=== PATIENT | female | born 1980 | race American Indian/Alaskan Native ===

== ENCOUNTER 2018-11-09 05:21 | Emergency (ER) | payer SELFPAY ==
[2018-11-09 05:37] VITALS: BP 110/78
[2018-11-09] MEDS ORDERED: IBUPROFEN PO ONE (05:45)
[2018-11-09] MEDS ORDERED: NORCO 7.5/325 PO ONE (05:45)
[2018-11-09] MEDS ORDERED: ZOFRAN ODT PO ONE (05:45)
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
--- NOTE | 2018-11-09 06:42 | Cat Scan Report ---
PROCEDURE: CT CERVICAL SPINE WO CON TECHNIQUE: CT imaging was obtained through the cervical spine without contrast. Transaxial, coronal and sagittal reformations are provided. HISTORY: neck pain after movement COMPARISONS: None FINDINGS: The cervical spine is intact. Vertebral body heights are preserved. No acute fracture or listhesis. A tlanto-dens interval and odontoid process are intact. Intervertebral disc spaces are preserved. No ce rvical spinal canal mass effect identified within the limits of CT. No perivertebral soft tissue swel ling or hematoma identified. Limited soft tissue exam of the visualized neck is unremarkable. IMPRESSION: Unremarkable CT of the cervical spine. Consider follow-up MRI as warranted. This document is electronically signed by Esau Alex MD., November 09 2018 06:39:44 AM ET
== END 2018-11-09 07:30 | disposition home or self-care (01) ==
LOC: ED 05:21
DX: G89.29 Other chronic pain (principal); M54.2 Cervicalgia; Z98.51 Tubal ligation status
CPT/HCPCS: 72125; 99283; Q0162

== ENCOUNTER 2019-04-23 08:21 | Emergency (ER) | payer SELFPAY ==
[2019-04-23] MEDS ORDERED: NACL 0.9% 1000 ML 1,000 ML IV ONE (10:00)
[2019-04-23] MEDS ORDERED: TYLENOL PO ONE (10:01)
--- NOTE | 2019-04-23 10:08 | Emergency Department Report ---
ED Dizziness HPI - General Chief Complaint: Dizziness Stated Complaint: PASSED OUT /DIZZY Time Seen by Provider: 04/23/19 09:42 Source: patient Mode of arrival: Ambulatory Limitations: No Limitations - History of Present Illness Initial Comments: Gela is a pleasant 38 year old female with history of lupus and migraine headache who presents with lightheadedness and syncope. Last night she had a syncopal episode. + brief loss of consciousness. No head trauma.. She has global throbbing headache. Today she has lightheadedness. she was unable to d rive. Lightheadedness worsens with position change. Lightheadedness worsens with walking. Last night she experienced palpitations. She denies chest pain. She denies abdominal pain. She has generalized malaise. Complaint: lightheadedness -: Gradual, days(s) (1) Timing: gradual onset Description: lightheadedness History of Same: Yes History of Trauma: No Severity: severe Improves With: remaining still Worsens With: movement, position, exertion Associated Symptoms: malaise, syncope - Related Data Previous Rx's Medication Instructions Recorded Last Taken Type Ibuprofen [Motrin 600 MG tab] 600 mg PO Q8H PRN #30 tablet 11/09/18 Unknown Rx Butalb/Acetaminophen/Caffeine 1 cap PO Q6HR PRN #10 cap 04/23/19 Unknown Rx [Fioricet 50-300-40 mg CAP] Allergies Allergy/AdvReac Type Severity Reaction Status Date / Time No Known Allergies Allergy Unverified 11/09/18 05:27 ED Review of Systems ROS: Stated complaint: PASSED OUT /DIZZY Other details as noted in HPI Comment: All other systems reviewed and negative Constitutional: malaise. denies: chills, fever Cardiovascular: palpitations. denies: chest pain Gastrointestinal: denies: abdominal pain, nausea, vomiting Neurological: headache. denies: numbness, confusion ED Past Medical Hx - Past Medical History Previous Medical History?: Yes Additional medical history: lupes - Surgical History Past Surgical History?: Yes Additional Surgical History: c/s, tousidectomy, right foot, tube ligation - Social History Smoking Status: Never Smoker Substance Use Type: None - Medications Home Medications: Home Medications Medication Instructions Recorded Confirmed Last Taken Type Ibuprofen [Motrin 600 MG tab] 600 mg PO Q8H PRN #30 tablet 11/09/18 Unknown Rx Butalb/Acetaminophen/Caffeine 1 cap PO Q6HR PRN #10 cap 04/23/19 Unknown Rx [Fioricet 50-300-40 mg CAP] ED Physical Exam - General Limitations: No Limitations General appearance: alert, in no apparent distress - Head Head exam: Present: atraumatic, normocephalic - Eye Eye exam: Present: normal appearance - ENT ENT exam: Present: mucous membranes moist - Neck Neck exam: Present: normal inspection, full ROM - Respiratory Respiratory exam: Present: normal lung sounds bilaterally. Absent: respiratory distress, wheezes, rales, rhonchi - Cardiovascular Cardiovascular Exam: Present: regular rate, normal rhythm, normal heart sounds. Absent: systolic murmur, diastolic murmur, rubs, gallop - GI/Abdominal GI/Abdominal exam: Present: soft, normal bowel sounds. Absent: distended, tenderness, guarding, rebound - Extremities Exam Extremities exam: Present: normal inspection - Back Exam Back exam: Present: normal inspection - Neurological Exam Neurological exam: Present: alert, oriented X3 - Psychiatric Psychiatric exam: Present: normal affect, normal mood - Skin Skin exam: Present: warm, dry, intact, normal color. Absent: rash ED Course Vital Signs 04/23/19 04/23/19 04/23/19 08:43 09:09 11:10 Temperature 98.4 F Pulse Rate 68 Respiratory 22 17 17 Rate Blood Pressure 116/80 O2 Sat by Pulse 100 Oximetry 04/23/19 11:28 Temperature Pulse Rate Respiratory 17 Rate Blood Pressure O2 Sat by Pulse Oximetry ED Medical Decision Making - Lab Data Result diagrams: 04/23/19 10:15 04/23/19 10:15 - EKG Data EKG shows normal: sinus rhythm, axis, intervals, QRS complexes, ST-T waves Rate: normal - EKG Data 04/23/19 10:47 NSR nl rate nl axis nl intervals no ST-T signs of ischemia no ST elevation rate 70 beats a minute - Medical Decision Making Mrs. Martin presents with syncope and subsequent lightheadedness. Typical migraine headache. Persistent lightheadedness differential diagnosis: Migraine headache, anemia, dehydration, fatigue, , viral syndrome. PERC negative for pulmonary embolism. Symptoms improved with IV fluid and IV antiemetics and analgesics. Prescribed Fioricet. Recommend rest hydration. Critical care attestation.: If time is entered above; I have spent that time in minutes in the direct care of this critically ill patient, excluding procedure time. ED Disposition Clinical Impression: Migraine headache, Lightheadedness, Fatigue Disposition: - TO HOME OR SELFCARE Is pt being admited?: No Does the pt Need Aspirin: No Condition: Stable Instructions: Lightheadedness (ED), Migraine Headache (ED) Prescriptions: Butalb/Acetaminophen/Caffeine [Fioricet 50-300-40 mg CAP] 1 cap PO Q6HR PRN #10 cap PRN Reason: Headache Referrals: IVANNA HERNÁNDEZ MD [Staff Physician] - 3-5 Days Forms: Work/School Release Form(ED)
[2019-04-23 11:00] LABS: Basophils # (Auto) 0.1 K/mm3 (0.0-0.1); Basophils % (Auto) 1.1 % (0.0-1.8); Eosinophils # (Auto) 0.1 K/mm3 (0.0-0.4); Eosinophils % (Auto) 0.7 % (0.0-4.3); Hematocrit 40.8 % (30.3-42.9); Hemoglobin 13.4 gm/dl (10.1-14.3); Lymphocytes # (Auto) 3.5 K/mm3 (1.2-5.4); Lymphocytes % (Auto) 41.6 % (13.4-35.0); Mean Corpuscular HGB Conc 33 % (30-34); Mean Corpuscular Volume 80 fl (79-97); Monocytes # (Auto) 0.4 K/mm3 (0.0-0.8); Monocytes % (Auto) 4.7 % (0.0-7.3); Platelet Count 233 K/mm3 (140-440); Red Blood Count 5.08 M/mm3 (3.65-5.03); Red Cell Distribution Width 14.7 % (13.2-15.2)
[2019-04-23] MEDS ORDERED: MORPHINE IV ONE (11:27)
[2019-04-23] MEDS ORDERED: ZOFRAN IV ONE (11:27)
[2019-04-23] MEDS ORDERED: TORADOL IV ONE (11:27)
[2019-04-23] MEDS ORDERED: DECADRON IV ONE (11:27)
[2019-04-23] MEDS ORDERED: TORADOL ONE (11:28)
[2019-04-23] MEDS ORDERED: ZOFRAN ONE (11:28)
[2019-04-23] MEDS ORDERED: DECADRON ONE (11:29)
[2019-04-23] MEDS ORDERED: MORPHINE ONE (11:29)
[2019-04-23 11:45] LABS: BUN/Creatinine Ratio TNR; Blood Urea Nitrogen TNR mg/dL (7-17)
[2019-04-23 11:46] LABS: Alanine Aminotransferase TNR units/L (7-56); Albumin TNR g/dL (3.9-5); Calcium TNR mg/dL (8.4-10.2); Hemolysis Index TNR
[2019-04-23 12:49] VITALS: BP 122/77
== END 2019-04-23 12:57 | disposition home or self-care (01) ==
LOC: ED 08:21
DX: G43.909 Migraine, unspecified, not intractable, without status migrainosus (principal); M32.9 Systemic lupus erythematosus, unspecified; Z90.89 Acquired absence of other organs; Z98.51 Tubal ligation status; Z79.899 Other long term (current) drug therapy
CPT/HCPCS: 36415; 80053; 84703; 85025; 93005; 93010; 96361; 96374; 96375; 99283; J1100; J1885; J2270; J2405; J7030

== ENCOUNTER 2019-05-13 21:44 | Emergency (ER) | payer OTHER ==
[2019-05-13] MEDS ORDERED: KEPPRA 1,000 MG/NS 0.75% 100ML 1,000 MG/100 ML BAG IV ONE (22:11)
--- NOTE | 2019-05-13 22:24 | Emergency Department Report ---
HPI - General Chief Complaint: Seizure Time Seen by Provider: 05/13/19 22:07 - HPI HPI: 38-year-old -[place]wegian female presents to the emergency department via EMS from home after having seizures. Apparently the patient had one or 2 seizures prior to EMS arrival but EMS also did witness a seizure. She was given 5 mg of Versed. Currently the patient is postictal and therefore a poor historian. The patient's significant other is at bedside and said that she had one previous episode of seizures a few months ago and went to [facility]. She is not on any medications. She otherwise has a past medical history of lupus and there is a previous visit/record that says she has a history of migraine headaches. ED Past Medical Hx - Past Medical History Previous Medical History?: Yes Additional medical history: lupes - Surgical History Past Surgical History?: Yes Additional Surgical History: c/s, tousidectomy, right foot, tube ligation - Social History Smoking Status: Never Smoker - Medications Home Medications: Home Medications Medication Instructions Recorded Confirmed Last Taken Type Ibuprofen [Motrin 600 MG tab] 600 mg PO Q8H PRN #30 tablet 11/09/18 Unknown Rx Butalb/Acetaminophen/Caffeine 1 cap PO Q6HR PRN #10 cap 04/23/19 Unknown Rx [Fioricet 50-300-40 mg CAP] levETIRAcetam [Keppra TAB] 500 mg PO BID #40 tablet 05/14/19 Unknown Rx ED Review of Systems ROS: Stated complaint: SEIZURE Other details as noted in HPI Comment: Unobtainable due to pts medical conditions Physical Exam - Physical Exam Vital Signs: Vital Signs 05/13/19 21:58 Temperature 98.1 F Pulse Rate 81 Respiratory 18 Rate Blood Pressure 105/67 O2 Sat by Pulse 95 Oximetry Physical Exam: GENERAL: Patient is postictal. HENT: Normocephalic. Atraumatic. Patient has moist mucous membranes. EYES: Pupils equal reactive to light bilaterally. NECK: Supple. Trachea is midline. CHEST/LUNGS: Clear to auscultation. There is no respiratory distress noted. HEART/CARDIOVASCULAR: Regular. There is no tachycardia. There is no murmur. ABDOMEN: Abdomen is soft, nontender. Patient has normal bowel sounds. There is no abdominal distention. SKIN: Skin is warm and dry. NEURO: Patient is very sleepy and postictal. She does arouse slightly to verbal and tactile stimuli but will go right back to sleep if not stimulated. Not currently answering questions or following commands. MUSCULOSKELETAL: There is no tenderness or deformity. There is no evidence of acute injury. ED Course Vital Signs 05/13/19 21:58 Temperature 98.1 F Pulse Rate 81 Respiratory 18 Rate Blood Pressure 105/67 O2 Sat by Pulse 95 Oximetry ED Medical Decision Making - Lab Data Result diagrams: 05/13/19 22:29 05/13/19 22:29 - EKG Data -: EKG Interpreted by Me EKG shows normal: sinus rhythm, axis, intervals, QRS complexes, ST-T waves Rate: normal - EKG Data When compared to previous EKG there are: previous EKG unavailable Interpretation: normal EKG - Radiology Data Radiology results: report reviewed CT of the head does not show any acute intracranial process including no ischemia, shift, mass, bleeding or skull fracture. - Medical Decision Making This patient presented with a few seizures prior to presentation, one of which was witnessed by EMS. At first the patient is postictal. She was reevaluated multiple times and has improved. She is still slightly drowsy from the seizures and the Versed but she is easily arousable and once awake she is oriented and alert. There are no focal, motor or sensory deficits and cranial nerves are intact. CT scan of the head without contrast did not show any bleed, shift, mass, ischemia, or any other acute process. Labs also have been mostly unremarkable and do not show any etiology of her symptoms. There's been no further seizure-like activity while in the emergency department. She was loaded with Keppra. Patient was able to ambulatory around the emergency department and says that she feels stable, just tired. She'll be discharged home to follow up with primary care and neurology. She will be started on Keppra until she is able to follow-up with the neurologist and have an EEG done. We discussed staying away from any alcohol or illicit drugs. She will return to the ER with any worsening of her symptoms or any acute distress. Critical Care Time: No Critical care attestation.: If time is entered above; I have spent that time in minutes in the direct care of this critically ill patient, excluding procedure time. ED Disposition Clinical Impression: Seizures Disposition: DC-01 TO HOME OR SELFCARE Is pt being admited?: No Condition: Stable Instructions: Recurrent Seizures Adult (ED) Additional Instructions: Please follow up with a primary care physician in the next few days. I am giving him a referral for 2 different local neurologists, Dr. Bolton and Dr. Kothari, to follow up regarding your seizures. I'm starting you on a seizure medication called Keppra. Try to avoid any alcohol or illicit drugs as they can lower your seizure threshold. Return to the emergency department immediately with any further seizure-like activity, worsening of your symptoms, or with any acute distress. Prescriptions: levETIRAcetam [Keppra TAB] 500 mg PO BID #40 tablet Referrals: [facility] [Outside] - 2-3 Days ISAAC KOTHARI MD [Staff Physician] - 2-3 Days UMBERTO BOLTON MD [Referring] - 2-3 Days
[2019-05-13 22:46] LABS: Hematocrit 36.9 % (30.3-42.9); Hemoglobin 12.1 gm/dl (10.1-14.3); Mean Corpuscular HGB Conc 33 % (30-34); Mean Corpuscular Volume 80 fl (79-97); Platelet Count 216 K/mm3 (140-440); Red Blood Count 4.59 M/mm3 (3.65-5.03); Red Cell Distribution Width 14.2 % (13.2-15.2)
[2019-05-13 23:11] LABS: Alanine Aminotransferase 7 units/L (7-56); Albumin 3.9 g/dL (3.9-5); BUN/Creatinine Ratio 19; Blood Urea Nitrogen 13 mg/dL (7-17); Calcium 8.9 mg/dL (8.4-10.2); Hemolysis Index 11
--- NOTE | 2019-05-13 23:30 | Cat Scan Report ---
CT HEAD WITHOUT CONTRAST INDICATION: Seizures TECHNIQUE: All CT scans at this location are performed using CT dose reduction for ALARA by means of automated exposure control. COMPARISON: None available. FINDINGS: BRAIN: No hemorrhage or mass effect are seen. No evidence of acute infarction is noted. ORBITS: Normal as visualized. SOFT TISSUES OF HEAD: Normal. CALVARIUM: Normal. VISUALIZED PARANASAL SINUSES AND MASTOID AIR CELLS: Clear. ADDITIONAL FINDINGS: None. IMPRESSION: No acute intracranial abnormality. Signer Name: Jacob Webber MD Signed: 05/13/2019 11:26 PM Workstation Name: [id number]
[2019-05-14 03:31] VITALS: BP 113/65
== END 2019-05-14 03:37 | disposition home or self-care (01) ==
LOC: ED 21:44
DX: R56.9 Unspecified convulsions (principal); Z98.51 Tubal ligation status; Z79.899 Other long term (current) drug therapy
CPT/HCPCS: 36415; 70450; 80053; 82962; 84703; 85027; 93005; 93010; 96365; 99285; J1953; 80320; G0480

== ENCOUNTER 2019-05-16 17:24 | Emergency (ER) | payer SELFPAY ==
[2019-05-16] MEDS ORDERED: KEPPRA 1,000 MG/NS 0.75% 100ML 1,000 MG/100 ML BAG IV ONE (18:12)
[2019-05-16] MEDS ORDERED: NACL 0.9% 1000 ML 1,000 ML IV ONE (18:12)
--- NOTE | 2019-05-16 18:12 | Emergency Department Report ---
ED Seizure HPI - General Chief Complaint: Seizure Stated Complaint: SEIZURE Time Seen by Provider: 05/16/19 18:02 Source: EMS Mode of arrival: Stretcher Limitations: No Limitations - History of Present Illness Initial Comments: She is a 38-year-old female that presents emergency room with complaints of seizure activity. Patient denies trauma. Patient states her teenage child witnessed it. Patient complains of headache. Patient states she simply has a headache after seizures. Patient states she has a history of seizure. Patient states she is compliant with her medications. Patient is taking Keppra. Patient states she was lying in bed when her seizure took place and her daughter found her in her bed. Patient brought in by EMS. Patient denies chest pain. Patient denies blurred vision. Patient denies neck pain. Patient denies shortness of breath. Patient denies fever and chills. MD Complaint: seizure -: Sudden Description of Episode: loss of consciousness, tonic-clonic movement -: second(s) Witnessed:: Yes Trauma: No Seizure History: known seizure disorder, compliant with medication Place: home Possible Precipitating Event: none Associated Symptoms: malaise. denies: chest pain, confusion, cough, diaphoresis, fever/chills, loss of appetite, rash, shortness of breath, syncope, weakness, tongue injury Treatments Prior to Arrival: none - Related Data Previous Rx's Medication Instructions Recorded Last Taken Type Ibuprofen [Motrin 600 MG tab] 600 mg PO Q8H PRN #30 tablet 11/09/18 Unknown Rx Butalb/Acetaminophen/Caffeine 1 cap PO Q6HR PRN #10 cap 04/23/19 Unknown Rx [Fioricet 50-300-40 mg CAP] levETIRAcetam [Keppra TAB] 500 mg PO BID #40 tablet 05/14/19 Unknown Rx levETIRAcetam [Keppra TAB] 500 mg PO BID #60 tablet 05/16/19 Unknown Rx Allergies Allergy/AdvReac Type Severity Reaction Status Date / Time No Known Allergies Allergy Unverified 11/09/18 05:27 ED Review of Systems ROS: Stated complaint: SEIZURE Other details as noted in HPI Constitutional: malaise. denies: chills, fever Eyes: denies: eye pain, eye discharge, vision change ENT: denies: ear pain, throat pain Respiratory: denies: cough, shortness of breath, wheezing Cardiovascular: denies: chest pain, palpitations Endocrine: no symptoms reported Gastrointestinal: denies: abdominal pain, nausea, diarrhea Genitourinary: denies: urgency, dysuria, discharge Musculoskeletal: denies: back pain, joint swelling, arthralgia Skin: denies: rash, lesions Neurological: headache. denies: weakness, paresthesias Psychiatric: denies: anxiety, depression Hematological/Lymphatic: denies: easy bleeding, easy bruising ED Past Medical Hx - Past Medical History Previous Medical History?: Yes Hx Seizures: Yes Additional medical history: lupes - Surgical History Past Surgical History?: Yes Additional Surgical History: c/s, tousidectomy, right foot, tube ligation - Family History Family history: no significant - Social History Smoking Status: Never Smoker Substance Use Type: None - Medications Home Medications: Home Medications Medication Instructions Recorded Confirmed Last Taken Type Ibuprofen [Motrin 600 MG tab] 600 mg PO Q8H PRN #30 tablet 11/09/18 Unknown Rx Butalb/Acetaminophen/Caffeine 1 cap PO Q6HR PRN #10 cap 04/23/19 Unknown Rx [Fioricet 50-300-40 mg CAP] levETIRAcetam [Keppra TAB] 500 mg PO BID #40 tablet 05/14/19 Unknown Rx levETIRAcetam [Keppra TAB] 500 mg PO BID #60 tablet 05/16/19 Unknown Rx ED Physical Exam - General Limitations: No Limitations, Other General appearance: alert, in no apparent distress - Head Head exam: Present: atraumatic, normocephalic - Eye Eye exam: Present: normal appearance, PERRL Pupils: Present: normal accommodation - ENT ENT exam: Present: mucous membranes moist - Neck Neck exam: Present: normal inspection - Respiratory Respiratory exam: Present: normal lung sounds bilaterally. Absent: respiratory distress - Cardiovascular Cardiovascular Exam: Present: regular rate, normal rhythm. Absent: systolic murmur, diastolic murmur, rubs, gallop - GI/Abdominal GI/Abdominal exam: Present: soft, normal bowel sounds - Rectal Rectal exam: Present: deferred - Extremities Exam Extremities exam: Present: normal inspection - Back Exam Back exam: Present: normal inspection - Neurological Exam Neurological exam: Present: alert, oriented X3 - Psychiatric Psychiatric exam: Present: normal affect, normal mood - Skin Skin exam: Present: warm, dry, intact, normal color. Absent: rash ED Course Vital Signs 05/16/19 05/16/19 05/16/19 18:00 20:01 20:15 Temperature 98.0 F Pulse Rate 67 67 66 Respiratory 13 11 L 15 Rate Blood Pressure 85/51 110/58 Blood Pressure 109/73 [Left] O2 Sat by Pulse 100 99 98 Oximetry 05/16/19 05/16/19 05/16/19 20:51 21:15 21:21 Temperature 98 F Pulse Rate 76 68 Respiratory 19 14 Rate Blood Pressure 110/58 106/75 Blood Pressure [Left] O2 Sat by Pulse 99 100 Oximetry - Reevaluation(s) Reevaluation #1: Patient states her headache is worse. Patient will be given Tylenol 1 g. 05/16/19 19:17 Reevaluation #2: I discussed all results with patient. Patient is stable for discharge. Patient will be discharged home. Patient agrees with plan of care. Patient given discharge instructions. Patient voiced understanding discharge instructions. 05/16/19 21:10 ED Medical Decision Making - Lab Data Result diagrams: 05/16/19 18:38 05/16/19 18:38 - Radiology Data Radiology results: report reviewed, image reviewed CT head/brain wo con INDICATION: Seizure, headache. TECHNIQUE: Routine CT head without contrast. All CT scans at this location are performed using CT dose reduction for ALARA by means of automated exposure control. COMPARISON: Previous head CT on 05/13/2019. FINDINGS: BRAIN / INTRACRANIAL CONTENTS: No acute hemorrhage, mass effect, midline shift, or hydrocephalus. No appreciable acute large territorial or lacunar infarct. No chronic infarct or focal atrophy. Normal brain volume and ventricular/sulcal size for age. ORBITS: No significant abnormality of visualized orbits. SINUSES / MASTOIDS: No significant abnormality of visualized sinuses and mastoid air cells. ADDITIONAL FINDINGS: None. IMPRESSION: 1. No acute intracranial abnormality. No adverse change from the prior exam. - Medical Decision Making Patient is a 38-year-old female Emergency room with seizure and headache. Patient history of seizure. Patient given a gram of Keppra. Patient's labs unremarkable. Patient's CT negative. Patient stable for discharge. Patient was discharged home. - Differential Diagnosis seizure. Headache. Critical care attestation.: If time is entered above; I have spent that time in minutes in the direct care of this critically ill patient, excluding procedure time. ED Disposition Clinical Impression: Seizures Headache Qualifiers: Headache type: unspecified Headache chronicity pattern: acute headache Intractability: not intractable Qualified Code(s): R51 - Headache Disposition: DC- TO HOME OR SELFCARE Is pt being admited?: No Does the pt Need Aspirin: No Condition: Stable Instructions: Epilepsy (ED), Acute Headache (ED), Recurrent Seizures Adult (ED), Women and Epilepsy (ED) Additional Instructions: Patient to follow up with primary care in 2-3 days. Patient to follow-up with neurologist in 2-3 days. Patient to return to ER if condition worsens. Patient to take meds as directed. Patient increase water. . Patient to take Tylenol or ibuprofen when necessary for pain. No driving. Patient to avoid exercise. Patient to avoid strenuous activities. Prescriptions: levETIRAcetam [Keppra TAB] 500 mg PO BID #60 tablet Referrals: PRIMARY CARE [Primary Care Provider] - 2-3 Days Time of Disposition: 21:05
[2019-05-16 18:50] LABS: Basophils % (Auto) 0.6 % (0.0-1.8); Eosinophils % (Auto) 0.5 % (0.0-4.3); Hematocrit 38.6 % (30.3-42.9); Hemoglobin 12.5 gm/dl (10.1-14.3); Lymphocytes # (Auto) 2.9 K/mm3 (1.2-5.4); Lymphocytes % (Auto) 42.7 % (13.4-35.0); Mean Corpuscular HGB Conc 32 % (30-34); Mean Corpuscular Volume 81 fl (79-97); Monocytes # (Auto) 0.3 K/mm3 (0.0-0.8); Monocytes % (Auto) 4.9 % (0.0-7.3); Platelet Count 230 K/mm3 (140-440); Red Blood Count 4.74 M/mm3 (3.65-5.03); Red Cell Distribution Width 14.1 % (13.2-15.2)
[2019-05-16 19:05] LABS: Alanine Aminotransferase 5 units/L (7-56); Albumin 3.9 g/dL (3.9-5); BUN/Creatinine Ratio 15; Blood Urea Nitrogen 9 mg/dL (7-17); Hemolysis Index 7
[2019-05-16] MEDS ORDERED: TYLENOL PO ONE (19:17)
--- NOTE | 2019-05-16 21:09 | Cat Scan Report ---
CT head/brain wo con INDICATION: Seizure, headache. TECHNIQUE: Routine CT head without contrast. All CT scans at this location are performed using CT dos e reduction for ALARA by means of automated exposure control. COMPARISON: Previous head CT on 05/13/2019. FINDINGS: BRAIN / INTRACRANIAL CONTENTS: No acute hemorrhage, mass effect, midline shift, or hydrocephalus. No appreciable acute large territorial or lacunar infarct. No chronic infarct or focal atrophy. Normal b rain volume and ventricular/sulcal size for age. ORBITS: No significant abnormality of visualized orbits. SINUSES / MASTOIDS: No significant abnormality of visualized sinuses and mastoid air cells. ADDITIONAL FINDINGS: None. IMPRESSION: 1. No acute intracranial abnormality. No adverse change from the prior exam. Signer Name: Bhupendra Bell MD Signed: 05/16/2019 9:05 PM Workstation Name: [id number]
[2019-05-16 21:21] VITALS: BP 106/75
== END 2019-05-16 21:21 | disposition home or self-care (01) ==
LOC: ED 17:24
DX: R56.9 Unspecified convulsions (principal); R51 Headache; M32.9 Systemic lupus erythematosus, unspecified; Z98.51 Tubal ligation status; Z90.89 Acquired absence of other organs; Z79.899 Other long term (current) drug therapy
CPT/HCPCS: 36415; 70450; 80053; 84703; 85025; 96374; 99284; J1953; J7030; 80320; G0480